=== PATIENT | female | born 1970 | race Caucasian/White ===

== ENCOUNTER 2016-10-12 02:58 | Emergency (ER) | payer OTHER ==
[~2016-10-12] VITALS: Ht 162.6 cm; Wt 63.5 kg
[2016-10-12] MEDS ORDERED: SULFAMETH/TRIMETH 800/160 MG TABLET PO ONE (03:30)
--- NOTE | 2016-10-12 03:40 | NUR ---
PT PRESENTS WITH MULTIPLE ABSCESSES FINGER,FOREARM AND RT THIGH.
--- NOTE | 2016-10-12 03:50 | NUR ---
PT SEEN AND EXAMINED BY DR ALCALA, WITH ORDERS, RT MID FINGER ABSCESS NOTED, GIVEN BACTRIM AND ACI WELL PRESC EXPLAINED AND UNDERSTOOD, DISCH AMBULATORY IN STABLE CONDITION.
[2016-10-12] MEDS ORDERED: SULFAMETH/TRIMETH 800/160 MG TABLET ONE (03:51)
[2016-10-12 03:54] VITALS: BP 116/74
== END 2016-10-12 04:00 | disposition home or self-care (01) ==
LOC: ER 02:58
DX: L02.413 Cutaneous abscess of right upper limb (principal); F32.9 Major depressive disorder, single episode, unspecified; F41.9 Anxiety disorder, unspecified; F19.10 Other psychoactive substance abuse, uncomplicated; Z86.19 Personal history of other infectious and parasitic diseases
CPT/HCPCS: A4663

== ENCOUNTER 2020-04-19 23:25 | Emergency (ER) | payer OTHER ==
[~2020-04-19] VITALS: Ht 162.6 cm; Wt 74.8 kg
--- NOTE | 2020-04-19 23:50 | NUR ---
Dr. Guaman at bedside for MSE.
[2020-04-20] MEDS ORDERED: IV NORMAL SALINE 1000 ML BAG IV ONE
[2020-04-20] MEDS ORDERED: ONDANSETRON 4 MG/2 ML VIAL IV ONE (00:15)
--- NOTE | 2020-04-20 00:20 | NUR ---
Patient provided urine sample, sent to lab.
[2020-04-20 00:22] LABS: BASOPHILS % (AUTO) 0.4 % (0.0-2.0); EOSINOPHILS # (AUTO) 0.2 K/uL (0.0-0.7); EOSINOPHILS % (AUTO) 1.8 % (0.0-7.0); HEMATOCRIT 38.4 % (31.2-41.9); HEMOGLOBIN 13.2 g/dL (10.9-14.3); LYMPHOCYTES # (AUTO) 2.5 K/uL (20.0-40.0); LYMPHOCYTES % (AUTO) 29.1 % (20.5-51.5); MEAN CORPUSCULAR HEMOGLOBIN 30.4 uug (24.7-32.8); MEAN CORPUSCULAR HGB CONC 34 g/dL (32.3-35.6); MEAN CORPUSCULAR VOLUME 88.6 fL (75.5-95.3); MONOCYTES # (AUTO) 0.6 K/uL (2.0-10.0); MONOCYTES % (AUTO) 6.8 % (0.0-11.0); NEUTROPHILS # (AUTO) 5.2 K/uL (1.8-8.9); NEUTROPHILS % (AUTO) 61.9 % (38.5-71.5); PLATELET COUNT (AUTO) 256 K/uL (179-408); RED BLOOD CELL COUNT(AUTO) 4.34 MIL/uL (3.63-4.92); WHITE BLOOD COUNT (AUTO) 8.5 K/uL (3.8-11.8)
--- NOTE | 2020-04-20 00:25 | NUR ---
Patient out of ER for CT.
--- NOTE | 2020-04-20 00:30 | NUR ---
Pt states she is a recovering heroin addict, hard stick for IV, refused IV, made aware.
[2020-04-20 00:31] LABS: CREATININE 0.6 mg/dL (0.6-1.3); POTASSIUM 3.7 mmol/L (3.5-5.1)
--- NOTE | 2020-04-20 00:33 | NUR ---
Pt back to ER from CT.
[2020-04-20 00:37] LABS: BILIRUBIN,DIRECT 0.1 mg/dL (0.0-0.2); BILIRUBIN,TOTAL 0.2 mg/dL (0.2-1.0); TOTAL PROTEIN, SERUM 7.4 g/dL (6.4-8.2)
[2020-04-20 00:54] LABS: *BILIRUBIN,URIN NEGATIVE (NEGATIVE); *BLOOD, URINE NEGATIVE (NEGATIVE); *CLARITY,URINE CLEAR (CLEAR); *COLOR,URINE YELLOW (YELLOW); *KETONES,URINE NEGATIVE (NEGATIVE); *UROBILINOGEN,URINE 0.2 E.U./dl (NORMAL); LEUKOCYTE ESTERASE ,URINE NEGATIVE (NEGATIVE); NITRITE, URINE NEGATIVE (NEGATIVE); PH,URINE 6.5 (5.0-8.0); UGLUCOSE NEGATIVE (NEGATIVE)
[2020-04-20] MEDS ORDERED: ONDANSETRON ODT 4 MG TAB.RAPDIS ONE (00:58)
--- NOTE | 2020-04-20 01:06 | NUR ---
Dr. Guaman performing pelvic exam, chaperoned by Loli FRANKEL.
[2020-04-20] MEDS ORDERED: ONDANSETRON ODT 4 MG TAB.RAPDIS SL ONE (01:15)
[2020-04-20] MEDS ORDERED: KETOROLAC TROMETHAMINE 60 MG INJ IM ONE ×3 (01:23→01:30)
--- NOTE | 2020-04-20 02:35 | NUR ---
Patient discharged to home in stable condition. Written and verbal after care instructions given. Patient verbalizes understanding of instructions. Stressed follow up or return to ER for worsening s/s. Patient ambulated out of ER with steady gait, no acute signs of distress, VSS, all belongings taken, patient provided with copies of labs and diagnostic procedures.
[2020-04-20 02:37] VITALS: BP 130/75
== END 2020-04-20 02:37 | disposition home or self-care (01) ==
LOC: ER 23:27
DX: R10.32 Left lower quadrant pain (principal); R11.0 Nausea; N28.89 Other specified disorders of kidney and ureter; F17.210 Nicotine dependence, cigarettes, uncomplicated; N83.202 Unspecified ovarian cyst, left side; N85.2 Hypertrophy of uterus; Z86.19 Personal history of other infectious and parasitic diseases; G89.29 Other chronic pain; M54.9 Dorsalgia, unspecified; F11.10 Opioid abuse, uncomplicated
CPT/HCPCS: 36415; 74176; 80048; 80076; 81001; 83690; 85025; 96372; 99284; 99406; J1885; A4663; J7030; Q0162